=== PATIENT | female | born 1940 | race Caucasian/White ===

== ENCOUNTER 2016-07-06 10:00 | Outpatient (RCR) | payer MEDICARE, OTHER ==
--- NOTE | 2016-06-25 11:49 | PT/OT/ST INITIAL EVALUATION ---
Department of Health and Human Services Form Approved [facility] Care Financing Administration OMB No. [id number] PLAN OF CARE/ASSESSMENT FOR OUTPATIENT REHABILITATION (Complete for Initial Claims Only) 1. LAST NAME Gilmar FIRST NAME Taylor MORE S 2. ACC # [id number] [facility]. [id number] 4. PROVIDER NO. [id number] 5. TYPE: X PT 6. PRIOR THERAPY (Same condition) None 7. PRIMARY DX Right shoulder pain 8. SECONDARY DX Cervicalgia 9. ONSET DATE 06/11/2016 10. REFERRAL DATE 06/17/2016 11. SOC. DATE/TIME 06/24/2016 1400 12. PRIOR LEVEL OF FUNCTION; PERTINENT HISTORY (Prior therapy results, reason for referral.) S: The patient was referred to physical therapy by Dr. Reyes with the diagnosis of right shoulder pain. The patient reports that she has been experiencing some pain at her right shoulder and neck since 06/11/2016. She feels that she had aggravated the area when performing exercises, lifting a weighted ball above her head. The patient is normally very active and does water walking 3 to 4 times a week; however, the patient was concerned after this injury due to the fact that she had a rotator cuff repair 8 years ago. The patient notes that symptoms are worse when reaching or lifting something above her head. Occupational and social history: The patient is retired. Overall health rating: She rates health as good. Current pain rating is 4/10. Past medical history includes knee replacement. The patient's goal for therapy is to control the pain and keep the shoulder from swelling. 13. INITIAL ASSESSMENT/SAFETY PRECAUTIONS/MEDICAL COMPLICATIONS (Level of function at start of care. Be specific, use objective measures, list problems.) O: APPEARANCE: The patient is a healthy looking 76-year-old female. She demonstrates slight forward head posture and mildly rounded shoulders. PALPATION: The patient has tenderness to palpation at her right levator scapular muscle belly and upper trap region. Trigger point noted at the insertion of her levator scapula at the medial border of her right scapula. RANGE OF MOTION/FLEXIBILITY: Cervical range of motion-flexion normal limits, extension normal limits, and right rotation was 90%, left rotation 70%, and bilateral side-bending 50%. Shoulder range of motion was full with both flexion and abduction. STRENGTH: Shoulder strength on the right was 5/5 manual muscle test, which was abduction, which was 4+/5 manual muscle test. All other motions were normal. TODAY'S TREATMENT: Included initial evaluation followed by a combination of ultrasound and electric stim to right upper trap region. Gentle manual stretching and mobilization was then performed to her neck, upper trap and levator scapular muscle bellies. The patient was then instructed on home exercise program for gentle flexibility and postural exercises. The treatment was ended with moist heat to her neck. 14. INITIAL POC: (Specify procedures, modalities, short and long-term goals) A: The patient presents with right levator scapula muscle spasm. PROGNOSIS: The patient is a good candidate for physical therapy to decreased pain and muscle guarding and progress with flexibility and strengthening. GOALS: 1. The patient to be compliant with home exercise program in 1 week. 2. The patient to demonstrate full cervical motion without pain in 3 weeks. 3. The patient to report that she is able to reach above her head without having pain at her right shoulder in 4 weeks. 4. The patient to report that she is able to perform normal daily activities and return to exercising with a pain rating of 0 to 1/10 in 6 weeks. PLAN: The patient will be seen 2 times a week over the next 4 weeks. Treatment to include modalities and manual therapy to decrease pain and muscle tension. We will progress the patient with range of motion, flexibility, and light stabilization activities as tolerated. We will also educate the patient on the importance of posture and body mechanics when performing activities. 15. FUNCTIONAL LEVEL (End of claim period) 16. PHYSICIAN SIGNATURE ? ON FILE OR ENTER HERE: 17. DATE: I certify the need for these services furnished under this plan of care and if for partial hospitalization. 18. CERTIFICATION FROM THROUGH FORM [id number]
[~2016-07-06 10:00] MED LIST: ACDPT PO; ALEN70TA47 PO; APIX5TAB PO; ASCO500T20 PO; BTH25T1 PO; CETI10TA20 PO; CTLP20T PO; EST45C VG; MELA10TA2 PO; OMEP20TA PO; SIMV40TA2 PO; TRM50T PO
== END 2016-09-21 10:17 | disposition home or self-care (01) ==
LOC: PT 10:00
PROVIDERS: ATTEND Family Medicine
DX: M25.511 Pain in right shoulder (principal); M54.2 Cervicalgia

== ENCOUNTER → 2016-10-02 | Outpatient (CLI) | payer MEDICARE, OTHER ==
--- NOTE | 2016-10-02 10:02 | Diagnostic Imaging Report ---
PROCEDURE: MR imaging cervical spine without contrast. TECHNIQUE: Multiplanar, multisequence MR imaging of the cervical spine was performed without contrast. INDICATION: Neck pain. COMPARISON: None available. FINDINGS: Normal alignment of the cervical spine. Specifically, no spondylolisthesis. Vertebral bodies are normal in height. No fracture or marrow replacing process. There is a benign subcentimeter T1 hyperintense hemangioma within the right phong-aspect of the C6 vertebra. No evidence of active facet synovitis in the cervical spine. Cervical cord is normal in size and thickness. Specifically, no cord edema or myelomalacia. Visualized aspects of the posterior fossa are unremarkable. Paravertebral soft tissues are normal. Flow voids are preserved within the vertebral arteries. No cervical lymphadenopathy. C1-C2: No erosive changes. Mild degenerative thickening/hypertrophy of the alar and apical ligaments. C2-C3: No disc osteophyte complex or posterior element hypertrophy. No resultant spinal stenosis or neuroforaminal narrowing. C3 C4: No disc osteophyte complex. No spinal stenosis or neuroforaminal narrowing. C4-C5: No significant disc bulge or osteophyte complex. Mild bilateral uncovertebral joint hypertrophy. However, there is no resultant spinal stenosis or neuroforaminal narrowing. C5-C6: No significant disc osteophyte complex. 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 No spinal stenosis. However, there is moderate left foraminal narrowing. C6-C7: No significant disc osteophyte complex. No spinal stenosis or neuroforaminal narrowing. C7-T1: Disc is normal. No spinal stenosis or neuroforaminal narrowing. IMPRESSION: 1. Normal cervical cord. No significant spinal stenosis in the cervical spine. 2. 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 Dictated by: Dictated on workstation # [id number]
== END ==
LOC: RAD 07:48
PROVIDERS: ATTEND Family Medicine
DX: M54.2 Cervicalgia (principal)
CPT/HCPCS: 72141